=== PATIENT | male | born 1995 | race Caucasian/White ===

== ENCOUNTER 2022-04-08 00:45 | Day surgery (SDC) | payer BC, SELFPAY ==
--- NOTE | 2022-04-07 17:05 | SUR.PREOP ---
Report to the Outpatient Waiting Room, entrance under the green pavilion located off [facility], at time 1200 on date 04/08/22. Planned Procedure Time: 1400. Time changes happen often and if your time is changed the preop area will call you the afternoon before. - You and your visitor will be asked to self-screen and do not enter if you have any COVID symptoms. - Only one visitor is requested with a max of two and NO children visitors are allowed at this time. - The patient visitor may be requested to leave or wait in car when not with patient due to distancing restrictions. - A mask is optional within the hospital at this time. Patients may have clear liquids (water, carbonated beverages, clear teas, apple juice) until 3 hours prior to surgery with a maximum of 20 ounces. - NO CLEAR LIQUIDS AFTER 1100 - No food from midnight until time of surgery - Infants may have breast milk until 4 hours before surgery, infant formula 6 hours prior to surgery. - Children will be allowed to drink immediately following surgery. If applicable, please bring a bottle or sippy cup to assist with drinking. Juice, water, soda, and popsicles are readily available. For infants on formula, please bring formula the day of surgery. Pacifiers are allowed. Take the following medications with a SIP of water the morning of surgery: N/A DO NOT STOP ANY OF YOUR OTHER PRESCRIPTION MEDICATIONS PRIOR TO SURGERY ?EXCEPT THE FOLLOWING Medications to discontinue per physician N/A Date to take last dose N/A Please no make-up, nail french, hairspray, perfume, deodorant, or body powder the day of surgery. No jewelry (including any body piercings) or valuables the day of surgery, leave them at home. Please take a shower or bath the night before, or the morning of, surgery with an antibacterial soap. Wear comfortable, loose fitting clothing. Children are encouraged to wear pajamas. - Jewelry must be removed prior to entering the operating room. Rings and piercings that are not removed may be cut off. - The hospital will not accept responsibility for valuables. - Please leave all valuables, including medications, at home the day of surgery. If you are going home after surgery, a licensed driver lifter of sanitation truck must drive you home. - NO public transportation without another adult if you receive anesthesia. - We recommend that an adult stay with you for 24 hours following discharge. - We also recommend that you do not drive, make important decision, drink alcoholic beverages, or take any drugs that were not prescribed by your health care provider for at least 24 hours after your discharge time. For Pediatric surgeries, we recommend two adults accompany the child home. Follow any additional instructions given to you from your surgeon. If you or anyone in your household have experienced Covid symptoms in the past week, please notify your surgeon or the nurse liaison at the phone number below for possible testing. Telephone instructions given to SWAPNIL BAHENA and asked if any additional questions and then verbalized understanding. Patient advised to call surgeon office or pre surgery nurse liaison [phone] if any additional questions.
[2022-04-07 17:16] VITALS: BMI 24.4
--- NOTE | 2022-04-08 07:22 | P.HP_ITS ---
History of Present Illness History of Present Illness Consent: Risks, benefits, and alternatives have been discussed and questions answered. Patient agrees to proceed with procedure. Chief complaint: HPV in male Narrative: Kaz Najera is a 26 year old male with recurrent HPV of the external genitalia. He has had this treated with laser ablation twice in the past and presents with a recurrence of his penile base. After discussion options including laser abla tion and outs are cream he has elected for the former. He is aware the risk including, but limited to, recurrence of this, wound infection and scarring. Review of Systems Cardiovascular: Cardiovascular: Denies chest pain, Denies lightheadedness, Denies palpitations and Denies dyspnea Respiratory: Respiratory: Denies dyspnea Gastrointestinal: Gastrointestinal: Denies diarrhea, Denies nausea and Denies vomiting Genitourinary: Genitourinary: Denies hematuria and Denies dysuria Endocrine: Endocrine: Denies palpitations PMFSH Social History Social History Years smoked: 10 Smoking status: Former smoker Tobacco type: cigarettes Smoking end date: 01/07/22 Spiritual care concerns: No Meds Home Medications and Allergies Home Medications Medication Instructions Recorded Confirmed Type multivitamin 1 tablet PO DAILY 04/07/22 04/07/22 History Allergies Allergy/AdvReac Type Severity Reaction Status Date / Time No Known Allergies Allergy Verified 04/07/22 17:14 Exam Const: General: no acute distress Resp: Effort & Inspection: normal respiratory effort GI: Inspection: non-distended GI Palp: No abdominal tenderness and No Guarding due to palpation present (GI) Auscultation: normal bowel sounds : General: Yes other (Genital warts at penile base) Assessment and Plan Assessment and plan (1) Genital warts due to HPV (human papillomavirus): Code(s): A63.0 - Anogenital (venereal) warts Status: Acute Assessment and Plan: * CO-2 laser ablation genital warts
[2022-04-08 12:05] VITALS: BP 111/70; PULSE 69; RESP 16; TEMP 36.9; O2SAT 100
[2022-04-08] MEDS: LIDOCAINE/PRILOCAINE CREAM 2.5-2.5% TUBE 1 EACH TOPICAL (13:40)
--- NOTE | 2022-04-08 14:32 | WPDHPUPDATE1 ---
History and Physical Update Update Date/Time: 04/08/22 14:32 History and Physical has been reviewed, including an updated exam of the patient. There are NO changes in the patient's condition. Risks, benefits, and alternatives have been discussed and questions answered. Patient agrees to proceed with procedure.
[2022-04-08 14:45] VITALS: BP 135/70; PULSE 89; RESP 20; O2SAT 100
[2022-04-08 14:55] VITALS: BP 122/58; PULSE 74; O2SAT 100
[2022-04-08] MEDS: LIDOCAINE HCL 1% LOCAL INJ 20 ML VIAL 10 ML INFILTRATE (14:56)
[2022-04-08 15:05] VITALS: BP 134/65; PULSE 71; RESP 12; O2SAT 100
--- NOTE | 2022-04-08 15:07 | W.PM.PROC2 ---
Procedure Note - Detailed Date of Procedure 04/08/22 Pre-op Diagnosis HPV in male Post-op Diagnosis Same Procedure Performed CO2 laser ablation genital condyloma Surgeon Miles Cooley MD Anesthesia Local Indications Patient is placed in a supine position on the operative table. After prep and drape in refer routine sterile fashion 1% lidocaine is injected at the site of his condyloma in the left base of the penis. Using 5x magnification and a CO2 laser at a power setting of 5 is used to ablate all visible lesions. Neosporin was applied the patient was taken recovery area in good condition. Description of Procedure Patient is placed in a supine position on the operative table. After prep and drape in refer routine sterile fashion 1% lidocaine is injected at the site of his condyloma in the left base of the penis. Using 5x magnification and a CO2 laser at a power setting of 5 is used to ablate all visible lesions. Neosporin was applied the patient was taken recovery area in good condition. Drains No Packing No Pathology None sent
== END 2022-04-08 15:30 | disposition home or self-care (01) ==
PROVIDERS: Visit Provider Urology
PROC: (CPT 54057; principal; 2022-04-08 14:00)
DX: A63.0 Anogenital (venereal) warts (principal); Z87.891 Personal history of nicotine dependence
CPT/HCPCS: 54057; A9270